=== PATIENT | male | born 1930 | race Caucasian/White ===

== ENCOUNTER 2017-10-13 06:07 | Emergency (ER) | payer OTHER ==
[~2017-10-13] VITALS: Ht 182.9 cm; Wt 78.3 kg
[2017-10-13] VITALS (9 sets, daily range): BP systolic 117–138; BP diastolic 48–67
[~2017-10-13 06:07] MED LIST: ALAVERT10 MG PO; ALBUTEROL SULF8.5 GM IH; ALBUTEROL17 G1 IH; ALLOPURINOL100 MG PO; AMOXICILLIN500 MG PO; ARANESP100 MCG/0. IV; ARANESP60 MCG/0.3 SQ; ASMANEX TW200 MICRO1 IH; Albuterol IH; Aranesp IM; Asmanex Twisthaler 2 IH; CALCIUM 500 +1 EACH PO; CALCIUM 600 +1 EAC9 PO; CALTRATE 600 +1 EACH PO; CALTRATE 6001 TABLET PO; COLCHICINE0.6 MG PO; COLCRYS0.6 MG PO; COUMADIN,JANTOVE5 MG PO; COUMADIN1 MG PO; COUMADIN4 MG PO; COZAAR100 MG PO; CYCLOBENZAPRINE10 MG PO; Cozaar PO; DAILY VITE1 EAC1 PO; Dilaudid IV; EPOGEN,PRO2000 UNITS IV; FINASTERIDE5 MG PO; FLUNISOLIDE25 M1 NS; FOLIC ACID1 MG PO; FORADIL AEROLI12 MCG IH; FUROSEMIDE20 MG PO; FUROSEMIDE40 MG PO; Folvite PO; GLUCOSAMINE &1 EACH PO; GLUCOSAMINE CH1 EACH PO; HAIR, SKIN & N1 EAC1 PO; IRON325 MG PO; LASIX40 MG PO; LISINOPRIL40 MG PO; LORATADINE10 M2 PO; LOSARTAN POTAS100 MG PO; METOLAZONE2.5 MG PO; OMEPRAZOLE20 MG PO; OMEPRAZOLE40 M1 PO; ONE-A-DAY 50 P1 EACH PO; Osteo-Biflex,Flex-A- PO; PROAIR HFA8.5 GM IH; PROSCAR5 MG PO; PROTONIX40 MG PO; PROVENTIL,200 INHALA IH; PROVENTIL17 GM IH; PriLOSEC PO; SENOKOT S,PE1 TABLET PO; SIMVASTATIN20 MG PO; SIMVASTATIN40 MG PO; SIMVASTATIN5 MG PO; SIMVASTATIN80 MG PO; SYNTHROID75 MCG PO; TRAMADOL HCL50 MG PO; TYLENOL EXTRA500 MG PO; Tylenol Regular Stre PO; Vicodin,Lortab 5/500 PO; WARFARIN SODIUM3 MG PO; ZESTRIL,PRINIVI20 MG PO; ZYLOPRIM100 MG PO; Zestril,Prinivil PO; Zocor PO; [UNRECOGNIZED DRUG - OTHER] PO
[2017-10-13 06:40] LABS: HEMATOCRIT 22.8 % (38.0-50.0); MCHC 32.5 G/DL (30.0-36.0); MCV 98.7 FL (86-99); PLATELET COUNT 319 K/uL (156-360); RBC DIS.WIDTH-CV 21.1 % (11.8-14.6); RBC DIS.WIDTH-SD 76.2 % (39-53); RED BLOOD COUNT 2.31 M/uL (4.00-5.50); WHITE BLOOD COUNT 7.8 K/uL (4.1-10.2)
[2017-10-13 06:50] LABS: D-DIMER ELISA < 150.00 ng/mLDDU (<230)
[2017-10-13 07:22] LABS: CHLORIDE 112 MEQ/L (99-109); GFR ESTIMATE (CALCULATED) 44 mL/min/; GLUCOSE 100 mg/dL (70-99); POTASSIUM 4.1 MEQ/L (3.7-5.4); SAMPLE HEMOLYSIS CHECK 0; SAMPLE ICTERIC CHECK 0; SAMPLE LIPEMIA CHECK 0; SODIUM 136 MEQ/L (136-147); UREA NITROGEN (BUN) 58 mg/dL (9-23)
[2017-10-13 07:33] LABS: TROP-I INTERPRETATION NEGATIVE; TROPONIN-I 0.01 ng/mL (0.0-0.30)
== END 2017-10-13 15:45 | disposition short-term general hospital (02) ==
LOC: EME → EDBD 06:07 → EME 06:07
PROVIDERS: Emergency Medicine
PROC: 30233N1 Transfusion of Nonautologous Red Blood Cells into Peripheral Vein, Percutaneous Approach (ICD-10-PCS; principal; 2017-10-13)
DX: R07.9 Chest pain, unspecified (principal); D64.9 Anemia, unspecified; I48.91 Unspecified atrial fibrillation; M25.511 Pain in right shoulder; I44.7 Left bundle-branch block, unspecified; I13.0 Hypertensive heart and chronic kidney disease with heart failure and stage 1 through stage 4 chronic kidney disease, or unspecified chronic kidney disease; N18.9 Chronic kidney disease, unspecified; E78.5 Hyperlipidemia, unspecified; J44.9 Chronic obstructive pulmonary disease, unspecified; Z79.01 Long term (current) use of anticoagulants; Z85.828 Personal history of other malignant neoplasm of skin; Z87.891 Personal history of nicotine dependence
CPT/HCPCS: 71020; 80048; 84484; 85027; 85379; 86850; 86900; 86901; 86920; 93005; 99281; 99285; P9016

== ENCOUNTER 2017-10-24 11:17 | Observation (INO) | payer OTHER ==
[~2017-10-24] VITALS: Ht 182.9 cm; Wt 84.8 kg
[~2017-10-24 11:17] MED LIST changes: +GLUCOSAMINE CH1 EAC1 PO; -GLUCOSAMINE CH1 EACH PO
[2017-10-24 12:31] LABS: BASOPHIL COUNT 0.1 K/uL (0-0.1); EOSINOPHIL COUNT 0.4 K/uL (0-0.3); HEMATOCRIT 29.6 % (38.0-50.0); IMMATURE GRANULOCYTE (%) 1.2 % (0.0-0.7); IMMATURE GRANULOCYTE COUNT 0.1 K/uL; MCH 31.4 PG (29.0-34.0); MCHC 32.8 G/DL (30.0-36.0); MCV 95.8 FL (86-99); MEAN PLAT.VOLUME 8.8 uM^3 (9.0-12.4); MONOCYTE (%) 11.3 % (3-12); MONOCYTE COUNT 1.2 K/uL (0-0.8); NEUTROPHIL (%) 73.3 % (45-76); NRBC (%) 0.2 /100 WBC (0-0); PLATELET COUNT 335 K/uL (156-360); RBC DIS.WIDTH-CV 18.7 % (11.8-14.6); RBC DIS.WIDTH-SD 64.4 % (39-53); RED BLOOD COUNT 3.09 M/uL (4.00-5.50); WHITE BLOOD COUNT 10.9 K/uL (4.1-10.2)
[2017-10-24 12:36] LABS: CHLORIDE 105 mEq/L (99-109); POTASSIUM 4.3 mEq/L (3.7-5.4); SODIUM 138 mEq/L (136-147)
[2017-10-24 12:38] LABS: GLUCOSE 99 mg/dL (70-99)
[2017-10-24 12:40] LABS: ANION GAP 7 MEQ/L (2-14)
[2017-10-24 12:42] LABS: GFR ESTIMATE (CALCULATED) > 59 mL/min/ (58.99-99999)
[2017-10-24 12:43] LABS: UREA NITROGEN (BUN) 34 mg/dL (9-23)
[2017-10-24 12:49] LABS: TROP-I INTERPRETATION NEGATIVE; TROPONIN-I 0.02 ng/mL (0.0-0.30)
[2017-10-24] MEDS ORDERED: ELIQUIS2.5 MG PO (14:48)
[2017-10-24 16:01] VITALS: BP 153/70
[2017-10-24 16:16] LABS: INTER. NORMALIZED RATIO 1.4; PROTHROMBIN TIME 15.7 SEC (10.2-12.9)
[2017-10-24 19:33] LABS: TROP-I INTERPRETATION NEGATIVE; TROPONIN-I 0.02 ng/mL (0.0-0.30)
[2017-10-24 23:38] VITALS: BP 142/62
[2017-10-25 01:50] LABS: TROP-I INTERPRETATION NEGATIVE; TROPONIN-I 0.01 ng/mL (0.0-0.30)
[2017-10-25 03:40] VITALS: BP 146/60
[2017-10-25 05:43] LABS: INTER. NORMALIZED RATIO 1.4; PROTHROMBIN TIME 15.5 SEC (10.2-12.9)
[2017-10-25 09:42] VITALS: BP 155/70
== END 2017-10-25 11:44 | disposition home or self-care (01) ==
LOC: EME 11:17 → EDOF 13:26 → 5WEST 13:26 → EDOF 13:26 → ENRESERV 13:30 → 5WEST 14:47
PROVIDERS: Emergency Medicine; Internal Medicine
DX: R07.9 Chest pain, unspecified (principal); D64.9 Anemia, unspecified; I48.2 Chronic atrial fibrillation; I13.0 Hypertensive heart and chronic kidney disease with heart failure and stage 1 through stage 4 chronic kidney disease, or unspecified chronic kidney disease; I50.9 Heart failure, unspecified; N18.9 Chronic kidney disease, unspecified; I44.7 Left bundle-branch block, unspecified; E78.5 Hyperlipidemia, unspecified; I35.0 Nonrheumatic aortic (valve) stenosis; Z79.01 Long term (current) use of anticoagulants; I49.5 Sick sinus syndrome; J44.9 Chronic obstructive pulmonary disease, unspecified; K21.9 Gastro-esophageal reflux disease without esophagitis; G89.4 Chronic pain syndrome; Z82.49 Family history of ischemic heart disease and other diseases of the circulatory system; E05.90 Thyrotoxicosis, unspecified without thyrotoxic crisis or storm; Z85.828 Personal history of other malignant neoplasm of skin; Z87.19 Personal history of other diseases of the digestive system; Z87.891 Personal history of nicotine dependence; Z96.651 Presence of right artificial knee joint; Z88.2 Allergy status to sulfonamides; Z88.5 Allergy status to narcotic agent; Z88.8 Allergy status to other drugs, medicaments and biological substances; Z91.09 Other allergy status, other than to drugs and biological substances
CPT/HCPCS: 71010; 80048; 84484; 85025; 85610; 93005; G0378